=== PATIENT | male | born 1965 | race African-American/Black ===

== ENCOUNTER 2019-01-10 15:01 | Emergency (ER) | payer MEDICAID ==
[~2019-01-10] VITALS: Ht 190.5 cm; Wt 141.0 kg
[2019-01-10 20:05] VITALS: BP 168/112
[2019-01-10] MEDS ORDERED: KETOROLAC 60MG/2ML VIAL IM ONE (20:15)
[2019-01-10] MEDS ORDERED: DIAZEPAM 5 MG TABLET PO ONE (20:15)
== END 2019-01-11 01:23 | disposition left against medical advice (07) ==
LOC: ER 15:01
DX: S06.0X0A Concussion without loss of consciousness, initial encounter (principal); M54.6 Pain in thoracic spine; E87.8 Other disorders of electrolyte and fluid balance, not elsewhere classified; V49.50XA Passenger injured in collision with unspecified motor vehicles in traffic accident, initial encounter; Y93.89 Activity, other specified; Y92.410 Unspecified street and highway as the place of occurrence of the external cause
CPT/HCPCS: 72100; 73030; 96372; 99283; J1885